=== PATIENT | male | born 1950 | race Two or more races ===

== ENCOUNTER 2018-12-09 12:40 | Emergency (ER) | payer SELFPAY ==
[~2018-12-09] VITALS: Ht 167.6 cm; Wt 83.0 kg
--- NOTE | 2018-12-09 12:40 | NUR ---
BIB [facility] FROM HOME, C/O BEING "TIRED", NO METFORMIN X 5 MONTHS, BLOOD SUGAR 396 IN THE FIELD. TO ER BED 9, HOOKED TO MONITOR, CHANGED TO GOWN, PROVIDED W WARM BLANKET, AWAITING MD EUCEDA
--- NOTE | 2018-12-09 12:46 | NUR ---
DR JOSUE AT BEDSIDE
[2018-12-09] MEDS ORDERED: IV NS 0.9% 1,000 ML BAG IV ONE ×2 (13:00→14:30)
[2018-12-09 13:08] LABS: BASOPHILS # (AUTO) 0.1 /CMM (0.0-0.2); BASOPHILS % (AUTO) 1.2 % (0.0-2.0); EOSINOPHILS % (AUTO) 1.7 % (0.0-6.0); HEMATOCRIT 49 % (39-51); HEMOGLOBIN 17.1 g/dL (13.5-17.5); LYMPHOCYTES # (AUTO) 2.6 /CMM (0.8-4.8); LYMPHOCYTES % (AUTO) 32.4 % (20.0-44.0); MEAN CORPUSCULAR HGB CONC 35 g/dl (31.0-36.0); MEAN CORPUSCULAR VOLUME 89 fL (80-96); MONOCYTES # (AUTO) 0.6 /CMM (0.1-1.30); MONOCYTES % (AUTO) 8.1 % (2.0-12.0); NEUTROPHILS # (AUTO) 4.5 /CMM (1.8-8.9); NEUTROPHILS % (AUTO) 56.6 % (43.0-81.0); PLATELET COUNT (AUTO) 252 /CMM (150-450); RED BLOOD CELL COUNT(AUTO) 5.51 MIL/uL (4.5-6.0)
[2018-12-09 13:25] LABS: CREATININE 0.9 mg/dL (0.6-1.3); POTASSIUM 3.9 mmol/L (3.5-5.1)
[2018-12-09] MEDS ORDERED: INSULIN REGULAR, HUMAN 100 UNIT/ML 10 ML VIAL SQ ONE (14:30)
[2018-12-09] MEDS ORDERED: INSULIN REGULAR, HUMAN 100 UNIT/ML 10 ML VIAL ONE (14:55)
--- NOTE | 2018-12-09 16:23 | NUR ---
BLOOD [id number]. AWARE
[2018-12-09 16:48] VITALS: BP 128/72
--- NOTE | 2018-12-09 16:48 | NUR ---
IV removed. Catheter intact and site benign. Pressure and 4x4 applied to site. No bleeding noted.Patient discharged to home in stable condition. Written and verbal after care instructions given. Patient verbalizes understanding of instruction.
== END 2018-12-09 16:49 | disposition home or self-care (01) ==
LOC: ER 12:44
DX: E11.65 Type 2 diabetes mellitus with hyperglycemia (principal); R53.83 Other fatigue
CPT/HCPCS: 36415; 80048; 82962; 85025; 96360; 96361; 96372; 99283; J1815; J7030 ×2